=== PATIENT | male | born 1970 | race Caucasian/White ===

== ENCOUNTER 2016-08-08 07:21 | Emergency (ER) | payer OTHER ==
[~2016-08-08] VITALS: Ht 172.7 cm; Wt 89.4 kg
[2016-08-08 07:22] VITALS: BP 147/90
[2016-08-08] MEDS ORDERED: BUPR-173 PO (07:40)
== END 2016-08-08 09:07 | disposition home or self-care (01) ==
LOC: ED 08:49
DX: S09.93XA Unspecified injury of face, initial encounter (principal); S00.511A Abrasion of lip, initial encounter; Y93.89 Activity, other specified; Y99.8 Other external cause status; Y92.89 Other specified places as the place of occurrence of the external cause
CPT/HCPCS: 99281